=== PATIENT | male | born 1975 | race Two or more races ===

== ENCOUNTER 2016-11-03 00:30 | Emergency (ER) | payer MEDICARE, MEDICAID ==
[~2016-11-03] VITALS: Ht 180.3 cm; Wt 108.0 kg
[2016-11-03 00:48] VITALS: BP 88/49
[2016-11-03] MEDS ORDERED: EPINEPHRINE 0.1MG/ML (1:10,000) 10ML SYR ONE ×2 (01:23→05:00)
== END 2016-11-03 01:23 | disposition expired ==
LOC: ER 00:36
DX: I46.9 Cardiac arrest, cause unspecified (principal); T17.890A Other foreign object in other parts of respiratory tract causing asphyxiation, initial encounter; G35 Multiple sclerosis; E11.9 Type 2 diabetes mellitus without complications; R56.9 Unspecified convulsions; Z99.11 Dependence on respirator [ventilator] status; Z88.0 Allergy status to penicillin; Z88.1 Allergy status to other antibiotic agents
CPT/HCPCS: 31500; 92950; 99285; J0171; J7030